=== PATIENT | female | born 1975 | race Caucasian/White ===

== ENCOUNTER 2017-02-09 12:21 | Emergency (ER) | payer OTHER ==
[2017-02-09 13:02] VITALS: BP 135/95
--- NOTE | 2017-02-09 13:12 | ER Document Report ---
ED Medical Screen (RME) - General Stated Complaint: DIFFICULTY BREATHING Time seen by provider: 13:10 Mode of Arrival: Ambulatory Information source: Patient Notes: 41-year-old female presents to ED for shortness of breath and lightheaded. She states around 10:30 she passed out. States her chest feels tight and cannot get a good deep breath. She's had a cough for about a week. I have greeted and performed a rapid initial assessment of this patient. A comprehensive ED assessment and evaluation of the patient, analysis of test results and completion of medical decision making process will be conducted by an additional ED providers. TRAVEL OUTSIDE OF THE [place] IN LAST 30 DAYS: No - Related Data Allergies/Adverse Reactions: levofloxacin [From Levaquin] Allergy (Verified 06/24/16 19:19) Past Medical History - Past Medical History Cardiac Medical History: Denies: Hx Coronary Artery Disease, Hx Hypertension Pulmonary Medical History: Denies: Hx Asthma Endocrine Medical History: Denies: Hx Diabetes Mellitus Type 1, Hx Diabetes Mellitus Type 2 Past Surgical History: Reports: Hx Appendectomy, Hx Hysterectomy, Hx Tubal Ligation - Immunizations Immunizations up to date: Yes Hx Diphtheria, Pertussis, Tetanus Vaccination: Yes Physical Exam - Vital signs Vitals: Temp Pulse Resp BP Pulse Ox 98.3 F 102 H 20 135/95 H 100 02/09/17 13:01 02/09/17 13:01 02/09/17 13:01 02/09/17 13:01 02/09/17 13:01 Course - Vital Signs Vital signs: Temp Pulse Resp BP Pulse Ox 98.3 F 102 H 20 135/95 H 100 02/09/17 13:01 02/09/17 13:01 02/09/17 13:01 02/09/17 13:01 02/09/17 13:01
[2017-02-09] MEDS ORDERED: PREDNISONE 20 MG TABLET PO ONE (13:13)
[2017-02-09] MEDS ORDERED: IPRATROPIUM/ALBUTEROL 0.5-2.5 MG/3 ML AMPUL NEB ONE (13:13)
[2017-02-09] MEDS: ALBUTEROL SULFATE 0.083% NEB 2.5 MG/3 ML AMPUL NEB SCH ×2 (13:50→14:03)
== END 2017-02-09 15:30 | disposition left against medical advice (07) ==
LOC: ER 12:21
DX: Z53.9 Procedure and treatment not carried out, unspecified reason (principal); R06.02 Shortness of breath
CPT/HCPCS: 94640 ×2; 99284; 71020; J7512; J7620

== ENCOUNTER 2017-02-16 16:47 | Emergency (ER) | payer OTHER ==
[2017-02-16] MEDS ORDERED: NORMAL SALINE 1000 ML 1,000 ML IV ONE (17:11)
[2017-02-16] MEDS ORDERED: LORAZEPAM INJ 2 MG/1 ML VIAL IV ONE ×2 (17:11→18:50)
--- NOTE | 2017-02-16 17:32 | ER Document Report ---
ED General - General Time seen by provider: 17:07 Mode of Arrival: Medic Information source: Patient TRAVEL OUTSIDE OF THE [place] IN LAST 30 DAYS: No - HPI Onset: Other - see HPI note Associated symptoms: Chest pain Similar symptoms previously: Yes Recently seen / treated by doctor: No <GUY HAQUE - Last Filed: 02/16/17 17:39> <BRIALANNAH - Last Filed: 02/16/17 22:17> - General Chief Complaint: Chest Pain Stated Complaint: CHEST PAIN Notes: Patient is a 41 year old female presenting to the emergency department for chest pain and facial weakness. Patient states her chest pain is on the left side and started first a few hours prior to arrival while going through some papers. Then patient started having some left sided weakness in her face. EMS reports that after running a 12 lead EKG the patient started "clicking her tongue and left face was jerking." Patient also complains of a headache. Patient also had a negative stroke screen with EMS. Benadryl was given to patient en route to ED. Patient was here in the emergency department 7 days ago for chest pain and shortness of breath; after seeing the E staff the patient left without being seen. 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 Patient also was admitted for the same chest pain and some anxiety and had a normal stress test completed. (GUY HAQUE) This 41-year-old female patient comes emergency room by EMS. The initial call went out for chest pain which started about 3 PM. Shortly after EMS arrived, she began clicking her tongue and looking like she was having left-sided facial dystonic reaction. EMS gave 50 mg of Benadryl, it seemed to help some and they called here requesting additional dosing which they gave her a total of 75 mg. In the emergency room she is contorting her left face considerably and is quite emotional. She was given Ativan which seemed to calm down some but she claims it does not help any and she states "my head hurts" and she is in tears with emotional crying. She also reports she developed a headache after the face twitching began. She was given an additional milligram of Ativan IV and Toradol IV. Later she denied feeling any better, however her heart rate and blood pressure were both down markedly from where she came in. She was later given morphine and Zofran and reevaluated. She is found to have left-sided posterior cervical muscle tenderness on palpation. She was also hyperventilating and complaining about her chest hurting severely and wrapping around both sides. At this time she has tenderness to palpate the sternum area and her chest. Epigastrium is not tender. She again is quite emotional and crying. She reports that her face is still drawing, but the distortion of the left face does tend to go away at times when she is distracted. When she talks, she tries to keep the left corner of the mouth immobile and does all the talking with the muscles on the right side. This makes no sense for someone who has excessive muscle twitching and jerking on the left side. She cannot have excessive motor activity and paralysis simultaneously. She admits that as afternoon prior to the onset of all these symptoms she had an argument with a former roommate which I think was a love interest. She reports going back home after this argument, at some point was looking through tax papers and got lightheaded, chest began hurting, and called 911. In trying to find out why she is so emotional, and crying, she states she is afraid she is having a heart attack or stroke. She does take Zoloft for depression and Vistaril for anxiety. She did exhibit some similar symptoms when she was admitted for chest pain on , at which time the admitting doctor reported that she seemed upset for an unclear reason, was excess company by her significant other, was counting with her fingers simultaneously on both hands stating she did this to resolve pain. She unexpectedly stated that she was not having a panic attack and pointed to her partner stating that she was the one who has panic attacks. Patient was quite tearful at that time. (ALANNAH GREGORY) - Related Data Allergies/Adverse Reactions: levofloxacin [From Levaquin] Allergy (Verified 02/09/17 13:11) Past Medical History - General Information source: Patient - Social History Smoking Status: Former Smoker Cigarette use (# per day): No Chew tobacco use (# tins/day): No Frequency of alcohol use: None Drug Abuse: None Family History: CAD, Hypertension - Past Medical History Cardiac Medical History: Reports: Hx Hypertension - lisinopril Neurological Medical History: Reports: Other - bells palsy on the left side (20 years ago) Psychiatric Medical History: Reports: Hx Anxiety - vistaril, Hx Depression - zoloft Past Surgical History: Reports: Hx Appendectomy, Hx Hysterectomy, Hx Tubal Ligation - Immunizations Immunizations up to date: Yes Hx Diphtheria, Pertussis, Tetanus Vaccination: Yes <GUY HAQUE - Last Filed: 02/16/17 17:39> Review of Systems - Review of Systems Constitutional: No symptoms reported EENT: See HPI Cardiovascular: See HPI, Chest pain Respiratory: No symptoms reported Gastrointestinal: No symptoms reported Genitourinary: No symptoms reported Female Genitourinary: No symptoms reported Musculoskeletal: No symptoms reported Skin: No symptoms reported Hematologic/Lymphatic: No symptoms reported Neurological/Psychological: See HPI, Headaches -: Yes All other systems reviewed and negative <GUY HAQUE - Last Filed: 02/16/17 17:39> Physical Exam - Vital signs Interpretation: Hypertensive - General General appearance: Appears well, Alert In distress: Mild - HEENT Head: Normocephalic, Atraumatic, Other - patient is able to clench both of her eyes shut while talking Eyes: Normal Pupils: PERRL Mucous membranes: Moist - Respiratory Respiratory status: No respiratory distress Chest status: Nontender Breath sounds: Normal Chest palpation: Normal - Cardiovascular Rhythm: Regular Heart sounds: Normal auscultation Murmur: No - Abdominal Inspection: Normal Distension: No distension Bowel sounds: Normal Tenderness: Nontender Organomegaly: No organomegaly - Back Back: Normal, Nontender - Extremities General upper extremity: Normal inspection, Normal ROM, Normal strength General lower extremity: Normal inspection, Normal ROM, Normal strength - Neurological Neuro grossly intact: Yes Cognition: Normal Orientation: AAOx4 [place] Coma Scale Eye Opening: Spontaneous [place] Coma Scale Verbal: Oriented Michael Coma Scale Motor: Obeys Commands Michael Coma Scale Total: 15 Speech: Normal Sensory: Normal - Psychological Associated symptoms: Normal affect, Normal mood - Skin Skin Temperature: Warm Skin Moisture: Dry <GUY HAQUE - Last Filed: 02/16/17 17:39> <ALANNAH GREGORY - Last Filed: 02/16/17 22:17> - Vital signs Vitals: Temp Pulse Resp BP Pulse Ox 98.3 F 110 H 22 H 142/104 H 94 02/16/17 17:01 02/16/17 17:01 02/16/17 17:01 02/16/17 17:01 02/16/17 17:01 Course <GUY HAQUE - Last Filed: 02/16/17 17:39> - Laboratory Result Diagrams: 02/16/17 17:45 02/16/17 17:45 - Diagnostic Test Radiology reviewed: Reports reviewed - CT scan of the head is unremarkable. - EKG Interpretation by Me EKG shows normal: Sinus rhythm, [place], Intervals, QRS Complexes, ST-T Waves Rate: Normal - 80 Rhythm: NSR When compared to previous EKG there are: No significant change <ALANNAH GREGORY - Last Filed: 02/16/17 22:17> - Re-evaluation Re-evalutation: 02/16/17 20:20 I went to check on the patient after she had had the additional Ativan and Toradol. She has had a negative CT scan of the head. She is still complaining about her head hurting. She is demanding to know why she is having the symptoms she is having. Her face is not twitching at this time, but she states it is still drawling. More upset she gets the more her face begins to twitch again. She is quite emotional, and quite demanding, and no matter how many times and told her I wanted to give her some more medication to get her headache to go away, she became more and more angry and asking "why can't people be nice here". When she stated that the headache only came after the EMS gave Benadryl, I stated that is somewhat unusual as we use Benadryl for treating headaches. She promptly stated "I know that". She was tachycardic and hypertensive when she got here, she is not now. She still states she does not feel any better but is obviously improved. (ALANNAH GREGORY) - Vital Signs Vital signs: Temp Pulse Resp BP Pulse Ox 97.9 F 85 22 H 134/92 H 98 02/16/17 22:09 02/16/17 22:09 02/16/17 22:09 02/16/17 22:09 02/16/17 22:09 - Laboratory Laboratory results interpreted by me: 02/16/17 02/16/17 17:45 17:45 WBC 17.6 H RDW 14.4 H Absolute Neutrophils 12.2 H Creatine Kinase 28 L Discharge <GUY HAQUE - Last Filed: 02/16/17 17:39> <ALANNAH GREGORY - Last Filed: 02/16/17 22:17> - Discharge Clinical Impression: Anxiety, Chest wall pain, Muscle tension headache, Left facial numbness, Left face twitching Condition: Stable Disposition: HOME, SELF-CARE Additional Instructions: Anxiety: The physician feels that some of your health problems are being caused by anxiety. Anxiety affects your health in many ways. Anxiety alone can cause palpitations, sweats, chest pains, abdominal pains, shortness of breath, and headaches. It contributes to ulcer disease, high blood pressure, irritable bowel syndrome, and has been shown to cause flare-ups of many other diseases. Anxiety is not a simple disorder to treat. If the anxiety is due to recent life stresses, you may simply need time to "work through" the changes. If the anxiety is due to an underlying unhappiness with yourself or due to psychiatric disturbance, professional help will be needed. Your physician can refer you for further help if needed. Anti-anxiety medication is occasionally given if the stress is acute or if you are having trouble sleeping. Chronic or frequent use of these medications is not a good idea because the body becomes reliant on it, preventing you from dealing with life's normal stresses. Tension Headache: Your headache seems to be a muscle tension headache. This very common type of headache occurs because of tightness in the muscles of the head and neck. Most commonly the cause is emotional stress. The headache may last hours or days. The treatment of uncomplicated tension headaches is rest and pain medication. Often, the newer antiinflammatory pain medications are prescribed, as these also decrease the irritability of the painful tissues. Muscle relaxers , cold packs, or warm packs are sometimes helpful. Anti-anxiety medication or narcotics are sometimes needed temporarily, but are best avoided in the long run. Your doctor has evaluated your headache problem, and finds no evidence of a serious health problem as a cause for the headache. If your headache becomes more severe, or if new symptoms develop (such as fever, stiff neck, vomiting, or decreasing alertness) you should be re-examined by the physician. REST TONIGHT FOLLOW UP WITH YOUR DOCTOR TOMORROW IF YOU ARE STILL HAVING SYMPTOMS. RETURN TO THE EMERGENCY ROOM IF ANY NEW OR WORSENING SYMPTOMS. Referrals: MARIO BURNS FNP [Primary Care Provider] - Follow up tomorrow Scribe Attestation: 02/16/17 22:17 I personally performed the services described in the documentation, reviewed and edited the documentation which was dictated to the scribe in my presence, and it accurately records my words and actions. (ALANNAH GREGORY) Scribe Documentation - Scribe Written by Scrsadie:: Guy Haque 02/16/17 17:36 acting as scribe for :: Bri <GUY HAQUE - Last Filed: 02/16/17 17:39>
[2017-02-16 17:51] LABS: ABSOLUTE BASOPHILS # (AUTO) 0.1 10^3/uL (0.0-0.2); ABSOLUTE EOSINOPHILS # (AUTO) 0.3 10^3/uL (0.0-0.6); ABSOLUTE NEUT (AUTO) 12.2 10^3/uL (1.7-8.2); BASOPHILS % (AUTO) 0.6 % (0-2); EOSINOPHILS % (AUTO) 1.5 % (0-6); HEMATOCRIT 38.5 % (36.0-47.0); HEMOGLOBIN 13.2 g/dL (12.0-15.5); HGB HCT DIFFERENCE 1.1; LYMPHOCYTES % (AUTO) 22.7 % (13-45); MEAN CORPUSCULAR HEMOGLOBIN 30.8 pg (27.0-33.4); MEAN CORPUSCULAR HGB CONC 34.2 g/dL (32.0-36.0); MEAN CORPUSCULAR VOLUME 90 fl (80-97); MONOCYTES % (AUTO) 5.6 % (3-13); RED BLOOD COUNT 4.27 10^6/uL (3.72-5.28); RED CELL DISTRIBUTION WIDTH 14.4 % (11.5-14.0); SEGMENTED NEUTROPHILS % (AUTO) 69.6 % (42-78); WHITE BLOOD COUNT 17.6 10^3/uL (4.0-10.5)
[2017-02-16 18:15] LABS: ALANINE AMINOTRANSFERASE 24 U/L (9-52); ALBUMIN 3.7 g/dL (3.5-5.0); ALKALINE PHOSPHATASE 65 U/L (38-126); ANION GAP 7 (5-19); ASPARTATE AMINO TRANSFERASE 19 U/L (14-36); BILIRUBIN,DIRECT 0.2 mg/dL (0.0-0.4); BILIRUBIN,TOTAL 0.3 mg/dL (0.2-1.3); BLOOD UREA NITROGEN 8 mg/dL (7-20); CALCIUM 9.2 mg/dL (8.4-10.2); CARBON DIOXIDE 29 mmol/L (22-30); CHLORIDE 106 mmol/L (98-107); CREATININE RESULT 0.74 mg/dL (0.52-1.25); GLUCOSE 80 mg/dL (75-110); POTASSIUM 3.9 mmol/L (3.6-5.0); SODIUM 142.3 mmol/L (137-145); TOTAL PROTEIN 6.5 g/dL (6.3-8.2)
[2017-02-16 18:16] LABS: ADD ON TESTING BLD IN LAB ACKNOWLEDGE
[2017-02-16 18:31] LABS: CREATINE KINASE 28 U/L (30-135)
[2017-02-16 18:47] LABS: APPEARANCE,URINE CLEAR; BILIRUBIN,URINE NEGATIVE (NEGATIVE); GLUCOSE, URINE NEGATIVE (NEGATIVE); KETONES,URINE NEGATIVE (NEGATIVE); LEUKOCYTE ESTERASE,URINE NEGATIVE (NEGATIVE); NITRITE,URINE NEGATIVE (NEGATIVE); PROTEIN,URINE NEGATIVE (NEGATIVE); URINE SPECIFIC GRAVITY 1.003; UROBILINOGEN,URINE NEGATIVE mg/dL (<2.0)
[2017-02-16] MEDS ORDERED: KETOROLAC TROMETHAMINE INJ/PF 30 MG/1 ML SDV IV ONE (18:50)
[2017-02-16] MEDS ORDERED: MORPHINE SULFATE 10 MG/ML INJ IV ONE (20:19)
[2017-02-16] MEDS ORDERED: ONDANSETRON HCL INJ/PF 4 MG/2 ML SDV IV ONE (20:19)
--- NOTE | 2017-02-17 00:17 | EKG REPORT ---
SEVERITY:- NORMAL ECG - SINUS RHYTHM : Confirmed by: Brittany Ramires 17-Feb-2017 00:16:10
[2017-02-17 08:47] VITALS: BP 124/86
== END 2017-02-16 22:55 | disposition home or self-care (01) ==
LOC: ER 16:47
DX: R07.89 Other chest pain (principal); G44.209 Tension-type headache, unspecified, not intractable; F41.9 Anxiety disorder, unspecified; R25.3 Fasciculation; R20.0 Anesthesia of skin; R29.810 Facial weakness; R00.0 Tachycardia, unspecified; F32.9 Major depressive disorder, single episode, unspecified; I10 Essential (primary) hypertension; Z79.899 Other long term (current) drug therapy; Z88.1 Allergy status to other antibiotic agents; Z87.891 Personal history of nicotine dependence
CPT/HCPCS: 93005; 96376; 99285; 96374; 96375; 36415; 82550; 85025; 80053; 81001; 84484; 70450; 93010; J1885; J2270; J2060; J2405; J7030